=== PATIENT | female | born 1995 | race Caucasian/White ===

== ENCOUNTER 2016-11-14 20:42 | Emergency (ER) | payer OTHER ==
[~2016-11-14] VITALS: Ht 167.6 cm; Wt 73.6 kg
[~2016-11-14 20:42] MED LIST: ADDE25CA PO; CLON-352 PO; IBUP800T23 PO; PROZ20CA11 PO
[2016-11-14 21:00] VITALS: BP 118/73; PULSE 108; RESP 18; TEMP 99; O2SAT 97
[2016-11-14] MEDS ORDERED: CLIN1CAP5 PO (21:25)
[2016-11-14] MEDS ORDERED: PRED20 PO (21:25)
--- NOTE | 2016-11-14 21:25 | PD ---
HPI Chief Complaint: ENT Complaint Time Seen by Provider: 21:19 Travel History International Travel<30 days: No Contact w/Intl Traveler<30days: No Traveled to known affect area: No History of Present Illness HPI 21-year-old female complains of sore throat. Patient states the symptoms started yesterday. Patient denies earache. Patient denies any coughing congestion. Patient denies any fever chills. Patient denies any nausea vomiting diarrhea. PFSH Past Medical History ADD: Yes ADHD: Yes Weight (Kg): 3 Depression: Yes Cancer: No Cardiovascular Problems: No Diabetes: No Diminished Hearing: No Headaches: No Psychiatric: Yes Immunizations Current: Yes Migraines: No Seizures: Yes Thyroid Disease: No Ulcer: No Tetanus Vaccination: < 5 Years Influenza Vaccination: No ?: Not LMP: : 0 Past Surgical History Other Surgery: Yes (COUPLE YEARS AGO, INGROWN TOENAIL) Social History Alcohol Use: No Tobacco Use: No Substance Use: No Allergies-Medications (Allergen,Severity, Reaction): Coded Allergies: venom-honey bee (Unverified Allergy, Unknown, 11/14/16) Reported Meds & Prescriptions Reported Meds & Active Scripts Active Review of Systems General / Constitutional: No: Fever Eyes: No: Visual changes HENT: Positive: Sore Throat, No: Headaches Cardiovascular: No: Chest Pain or Discomfort Respiratory: No: Shortness of Breath Gastrointestinal: No: Abdominal Pain Genitourinary: No: Dysuria Musculoskeletal: No: Pain Skin: No Rash Neurologic: No: Weakness Psychiatric: No: Depression Endocrine: No: Polydipsia Hematologic/Lymphatic: No: Easy Bruising Physical Exam Narrative GENERAL: Well-nourished, well-developed patient. SKIN: Focused skin assessment warm/dry. HEAD: Normocephalic. EYES: No scleral icterus. No injection or drainage. Throat: Erythematous and edema. No exudate. NECK: Supple, trachea midline. No JVD. Patient has anterior cervical lymphadenopathy. No meningismus CARDIOVASCULAR: Regular rate and rhythm without murmurs, gallops, or rubs. RESPIRATORY: Breath sounds equal bilaterally. No accessory muscle use. GASTROINTESTINAL: Abdomen soft, non-tender, nondistended. MUSCULOSKELETAL: No cyanosis, or edema. BACK: Nontender without obvious deformity. No CVA tenderness. Data Data Last Documented VS Vital Signs Date Time Temp Pulse Resp B/P (MAP) Pulse Ox O2 Delivery O2 Flow Rate FiO2 11/14/16 21:13 (88) 11/14/16 21:00 99.0 108 18 97 Orders Orders Group A Rapid Strep Screen (11/14/16 21:10) Clindamycin (Cleocin) (11/14/16 21:30) Prednisone (Deltasone) (11/14/16 21:30) MDM Medical Decision Making Medical Screen Exam Complete: Yes Emergency Medical Condition: Yes Differential Diagnosis Differential diagnosis including viral with strep pharyngitis. Narrative Course 21-year-old female with sore throat. Clindamycin 300 mg by mouth given. Prednisone 20 mg by mouth given. Diagnosis Primary Impression: Pharyngitis Qualified Codes: J02.9 - Acute pharyngitis, unspecified Patient Instructions: General Instructions Additional Instructions: Take medications as directed. Tylenol for fever. Follow-up with personal physician. Return if worse. Med/Other Pt SpecificInfo: Prescription(s) given Scripts Prednisone (Prednisone) 20 Mg Tab 20 MG PO BID, #10 TAB 0 Refills Prov: Leo Marcelo MD 11/14/16 Clindamycin (Clindamycin) 150 Mg Cap 2 TAB PO Q6H for Infection, #80 CAP 0 Refills Prov: Leo Marcelo MD 11/14/16 Disposition: 01 DISCHARGE HOME Condition: Stable Leo Marcelo MD Nov 14, 2016 21:25
[2016-11-14] MEDS ORDERED: CLINDAMYCIN 150 MG CAP PO ONE (21:30)
[2016-11-14] MEDS ORDERED: predniSONE 20 MG TAB PO ONE (21:30)
== END 2016-11-14 22:00 | disposition home or self-care (01) ==
LOC: PHEFT 20:42
DX: J02.9 Acute pharyngitis, unspecified (principal); B95.0 Streptococcus, group A, as the cause of diseases classified elsewhere; Z86.59 Personal history of other mental and behavioral disorders; Z86.69 Personal history of other diseases of the nervous system and sense organs
CPT/HCPCS: 87880; 99284; J7512